=== PATIENT | male | born 1970 | race Caucasian/White ===

== ENCOUNTER 2020-04-17 12:50 | Emergency (ER) | payer MEDICARE, OTHER ==
[~2020-04-17] VITALS: Ht 188 cm; Wt 90.7 kg
[2020-04-17] MEDS ORDERED: TRAZ100 PO (14:44)
[2020-04-17] MEDS ORDERED: OXYB5 PO (14:44)
[2020-04-17] MEDS ORDERED: ACETAMINOPHEN500 MG PO (17:01)
[2020-04-17] MEDS ORDERED: LIDO700A20 TOP (17:01)
[2020-04-17] MEDS ORDERED: Valium5 MG PO (17:01)
[2020-04-17] MEDS ORDERED: IBUP600 PO (17:01)
== END 2020-04-17 17:10 | disposition home or self-care (01) ==
LOC: ER 12:50
DX: M54.5 Low back pain (principal); Z79.899 Other long term (current) drug therapy; W01.198A Fall on same level from slipping, tripping and stumbling with subsequent striking against other object, initial encounter
CPT/HCPCS: 72070; 72100; 99283-25; A9270; A9270-GY

== ENCOUNTER 2020-04-20 13:46 | Emergency (ER) | payer MEDICARE, OTHER ==
[~2020-04-20] VITALS: Ht 188 cm; Wt 90.7 kg
[~2020-04-20 13:46] MED LIST: ACETAMINOPHEN500 MG PO; IBUP600 PO; LIDO700A20 TOP; OXYB5 PO; TRAZ100 PO; Valium5 MG PO
[2020-04-20] MEDS ORDERED: HYDR1TAB94 PO (15:06)
[2020-04-20] MEDS ORDERED: CYCL10 PO (15:06)
== END 2020-04-20 15:17 | disposition home or self-care (01) ==
LOC: ER 13:46
DX: M62.830 Muscle spasm of back (principal); Z79.899 Other long term (current) drug therapy
CPT/HCPCS: 96372; 99283-25; A9270-GY; J1885

== ENCOUNTER 2021-04-30 10:03 | Day surgery (SDC) | payer MEDICARE, OTHER ==
[~2021-04-30] VITALS: Ht 188 cm; Wt 82.3 kg
[~2021-04-30 10:03] MED LIST changes: +CYCL10 PO; +HYDR1TAB94 PO
--- NOTE | 2021-04-30 10:42 | NUR ---
History, Chart, Medications and Allergies reviewed before start of procedure.Patient confirms NPO status and agrees with scheduled surgery. Patient states colon prep results clear.
--- NOTE | 2021-04-30 11:06 | NUR ---
04/30/21 1106 Rafi Beltran History, Chart, Medications and Allergies reviewed before start of procedure. MONITOR INTACT WITH CONTINUOUS PULSE OXIMETRY AND INTERMITTENT BP. See Anesthesia record/DR JACOBS.
--- NOTE | 2021-04-30 14:10 | NUR ---
Patient up to Ambulate independently. Gait SAME ADMIT STILL NEEDS ASSIST BY WALKER TO STAND AND MOVE. Discharge instructions reviewed with patient. Patient verbalizes understanding. Copy given to patient to take home. Patient States Post-Procedure ride home has been arranged. Dressing to procedure site , dry, intact WITH SLIGHT RED DISCHARGED visible PT EDUCATED ON WATCHING FOR EXCESSIVE BLEEDING drainage, swelling, erythema or bruising noted. Discharged via wheelchair to private car for ride home.
== END 2021-04-30 23:22 | disposition home or self-care (01) ==
LOC: ORSCMMR 10:03
PROVIDERS: Surgery
PROC: 06BY0ZC Excision of Hemorrhoidal Plexus, Open Approach (ICD-10-PCS; principal; 2021-04-30 10:30)
PROC: 0DJD8ZZ Inspection of Lower Intestinal Tract, Via Natural or Artificial Opening Endoscopic (ICD-10-PCS; principal; 2021-04-30 10:30)
DX: Z12.11 Encounter for screening for malignant neoplasm of colon (principal); K64.4 Residual hemorrhoidal skin tags; F17.210 Nicotine dependence, cigarettes, uncomplicated; G81.91 Hemiplegia, unspecified affecting right dominant side; Z79.899 Other long term (current) drug therapy
CPT/HCPCS: 46260; G0121; 88304; A9270; J1100; J1885; J2250; J2405; J2704; J3010; J7120

== ENCOUNTER 2021-09-15 12:14 | Emergency (ER) | payer MEDICARE, OTHER ==
[~2021-09-15] VITALS: Ht 188 cm; Wt 83.9 kg
== END 2021-09-15 13:30 | disposition home or self-care (01) ==
LOC: ER 12:14
DX: S01.01XD Laceration without foreign body of scalp, subsequent encounter (principal)

== ENCOUNTER → 2021-10-13 | Outpatient (CLI) | payer MEDICARE, OTHER | LOC: LAB SHORT 14:45 | DX: L08.9 Local infection of the skin and subcutaneous tissue, unspecified (principal); L02.223 Furuncle of chest wall | CPT/HCPCS: 87070; 87205 ==